=== PATIENT | male | born 1935 | race Caucasian/White ===

== ENCOUNTER 2016-04-07 13:45 | Outpatient (RCR) | payer MEDICARE | END 2016-05-05 09:12 | disposition home or self-care (01) | LOC: PT 13:45 | PROVIDERS: ATTEND Orthopaedic Surgery | DX: M17.12 Unilateral primary osteoarthritis, left knee (principal) | CPT/HCPCS: 97016; 97110; 97161; G8978; G8979; G8980 ==

== ENCOUNTER → 2016-04-10 | Outpatient (REF) | payer MEDICARE ==
[2016-04-10 14:05] LABS: BASOPHILS % (AUTO) 1 % (0-2); EOSINOPHILS # (AUTO) 0.1 10^3uL; EOSINOPHILS % (AUTO) 2 % (0-4); LYMPHOCYTES # (AUTO) 0.7 X10^3; MEAN CORPUSCULAR HEMOGLOBIN 30.8 PG (26.0-34.0); MEAN CORPUSCULAR HGB CONC 35.2 g/dL (31.0-37.0); MEAN CORPUSCULAR VOLUME 88 FL (80-100); MEAN PLATELET VOLUME 9.4 FL (6.0-9.5); MONOCYTES # (AUTO) 0.6 X10^3; MONOCYTES % (AUTO) 9 % (3-11); NEUTROPHILS # (AUTO) 4.5 X10^3; NEUTROPHILS % (AUTO) 75 % (51-67); PLATELET COUNT 217 10^3uL (150-450); WHITE BLOOD COUNT 5.91 10^3uL (4.0-11.0)
[2016-04-10 14:09] LABS: BILIRUBIN,URINE Negative (Negative); CLARITY,URINE Clear; COLOR,URINE Yellow; GLUCOSE, URINE (UA) Negative (Negative); LEUKOCYTE ESTERASE, URINE Negative (Negative); PH,URINE 5.5 (5.0 - 8.0); UROBILINOGEN,URINE 0.2 mg/dL (0.2-1.0)
[2016-04-10 14:41] LABS: ALBUMIN 3.5 g/dL (3.4-5.0); ANION GAP 13.2 MEQ/L (3-15); CALCULATED IONIZED CALCIUM 4.4 mg/dL (3.8-4.6); TOTAL PROTEIN 6.1 g/dL (6.4-8.5)
== END ==
LOC: LAB 13:54
PROVIDERS: ATTEND Family Medicine
DX: Z01.818 Encounter for other preprocedural examination (principal)
CPT/HCPCS: 80053; 81003; 85025

== ENCOUNTER → 2016-06-16 | Outpatient (CLI) | payer MEDICARE ==
[~2016-06-16] MED LIST: PROM25TA5 PO
--- NOTE | 2016-06-16 16:48 | Diagnostic Imaging Report ---
EXAMINATION: Left knee, two views. COMPARISON: December 05, 2015. HISTORY: An 80-year-old male, status post left total knee replacement. FINDINGS: There is a total hinged left knee prosthesis. The hardware appears intact. There is no identified periprosthetic lucency. There is nonspecific prepatellar soft tissue swelling. There is no identified large knee joint effusion. There is no identified acute fracture. IMPRESSION: 1. Intact left total hinged knee prosthesis without identified complication. 2. Nonspecific prepatellar soft tissue swelling. Dictated by: Dictated on workstation # [id number]
== END ==
LOC: RAD 15:57
PROVIDERS: ATTEND Orthopaedic Surgery
DX: Z98.890 Other specified postprocedural states (principal); Z96.652 Presence of left artificial knee joint
CPT/HCPCS: 73560

== ENCOUNTER 2016-07-02 13:00 | Outpatient (RCR) | payer MEDICARE ==
--- NOTE | 2016-05-01 13:50 | PT/OT/ST INITIAL EVALUATION ---
Department of Health and Human Services Form Approved [facility] Care Financing Administration OMB No. [id number] PLAN OF CARE/ASSESSMENT FOR OUTPATIENT REHABILITATION (Complete for Initial Claims Only) 1. LAST NAME Karen FIRST NAME Ayush Thomson 2. ACC # [id number] 3. [facility] [id number] 4. PROVIDER NO. [id number] 5. TYPE: X PT 6. PRIOR THERAPY (Same condition) 7. PRIMARY DX Status post left TKA 8. SECONDARY DX weakness 9. ONSET DATE 04/23/2016 10. REFERRAL DATE 11. SOC. DATE/TIME 04/27/2016 @ 11:23 a.m. 12. PRIOR LEVEL OF FUNCTION; PERTINENT HISTORY (Prior therapy results, reason for referral.) S: Prior to therapy, the patient did consent to today's evaluation and treatment. The patient is a 80-year-old male referred to physical therapy by Dr. Edmondson Daily to address status post left TKA. The patient does rate his overall and general health as good. The patient states that he has been having declining knee function over the 1-2 years to the point where the knee was starting to limit function. The patient underwent a total knee replacement on 04/23/2016 and was out of the hospital on Wednesday following this. The patient has been performing some exercises at home since this but is not icing at this time. The patient states that his leg feels tight and uncomfortable all the time. The patient states that pain is present with all movement. The patient is significantly reliant on his walker to unweight his knee as he is ambulating. The patient does have a CPM machine at home where he starts at 40-50 and then increases this to 90. He is doing this 3 times a day for approximately 1 hour per session. Prior function: Includes the patient being unlimited in all activity, although all activity was performed with pain. Currently the patient is limited with all activity including getting in and out of the car, walking between rooms, requiring an assisted device to walk, especially up and down stairs. The patient us unable to perform any yard work or gait activities around the house that need performed and needs assistance with ADLs from his . Therapy History: Includes prehab which the patient was performing exercises at home. The patient additionally had therapy in the hospital prior to discharge. No obstacles of delivery of care are observed. Maximal pain level is 7-8/10. The patient describes the pain as an intense aching in the left knee. Aggravating factors include being up on the knee, walking, and especially changing positions. Relieving factors include medications. Diagnostic tests: No diagnostic tests have been performed since the surgery. Past medical history: Includes osteoarthritis and osteoporosis. Medication list: Include pain medication and antiinflammatory prescribed by the doctor. No other significant or reported. The patient's goal for physical therapy is to get back to normal use of his left knee. 13. INITIAL ASSESSMENT/SAFETY PRECAUTIONS/MEDICAL COMPLICATIONS (Level of function at start of care. Be specific, use objective measures, list problems.) O: APPEARANCE AND OBSERVATION: The patient presents as an older male in apparently healthy condition. He does ambulate with an antalgic gait pattern with a front wheeled walker with significant decrease in weight through the left lower extremity. PALPATION: With palpation the patient does exhibit 1+ pitting edema in the left leg especially around the ankle and medial and lateral knee. SPECIAL TESTS: Include circumferential measures which were taken 10 cm superior to the joint line, at the knee joint line, and 10 cm inferior to the joint line. These measurements on the right are 42.2, 40.8, and 36.5 cm respectively. These measurements on the left are 49.3, 46.2, and 41.6 cm respectively. Patellar mobility is within normal limits. The patient did have a positive Ballottement test as well. RANGE OF MOTION/FLEXIBILITY: Throughout the right knee is 2 degrees of hyperextension to 138 degrees of flexion. Throughout the left knee lacking 5 degrees from full extension to 104 degrees of flexion. Following today's treatment the patient was able to flex the left knee to 110 degrees with no pain. STRENGTH: Throughout the right lower extremity is 4+/5. Throughout the left lower extremity grossly 4/5 at the ankle. Hip motion is grossly 3+/5. Hamstring 3/5 and hip and or knee extension is 2+/5. TODAY'S TREATMENT: Following initial evaluation therapeutic exercise was performed in addition to the home exercise program. A vasopneumatic device with cold and compression was then performed throughout the left knee. The patient did have visible decreased swelling in this lower extremity after today's treatment. The patient was provided with a [employer] garment for graduated compression in the left lower extremity to manage swelling. 14. INITIAL POC: (Specify procedures, modalities, short and oil heaterman goals) A: The patient presents at physical therapy with diagnosis of status post left TKA with resultant decreased active range of motion, decreased strength, increased swelling, and decreased gait. PROGNOSIS: The patient does have a good prognosis with regular therapy attendance and compliance with home exercise program. This patient is expected to benefit from physical therapy services in order to have increased active range of motion, increased strength, and improved gait to return to full prior activities. OUTCOME ASSESSMENT: Lower extremity functional index which scored 14/80. FUNCTIONAL LIMITATION CODES: [id number], [id number]. GOALS: 1. The patient to be independence and compliant with home exercise program in 1 week. 2. The patient with active range of motion in left knee 0-120 degrees in 3 weeks to allow getting in and out of a car without restrictions. 3. The patient with left lower extremity strength 4+/5 throughout in 5 weeks to allow community mobility without an assisted device. 4. The patient with lower extremity functional index score of at least 50/80 in 6 weeks to allow return to yard work. The diagnosis, prognosis, treatment plan, risks and expected outcome were discussed with the patient and the patient did agree to today's established plan of care. PLAN: Plan to treat the patient 3 times per week for 6 weeks in order to address left TKA. Therapeutic treatments to include modalities to decrease pain, inflammation and swelling. Manual therapy techniques as indicated. Therapeutic exercise targeting active range of motion and strengthening, as well as knee and hip stabilization activities, gait training, balance and proprioceptive training, and patient education and home exercise program to be advanced as warranted. 15. FUNCTIONAL LEVEL (End of claim period) 16. PHYSICIAN SIGNATURE ? ON FILE OR ENTER HERE: 17. DATE: I certify the need for these services furnished under this plan of care and if for partial hospitalization. 18. CERTIFICATION FROM THROUGH FORM
== END 2016-07-13 12:04 | disposition home or self-care (01) ==
LOC: PT 13:00
PROVIDERS: ATTEND Orthopaedic Surgery
DX: Z47.1 Aftercare following joint replacement surgery (principal); Z96.651 Presence of right artificial knee joint
CPT/HCPCS: 97016; 97110; 97112; 97140; 97161; G8978; G8979; G8980